=== PATIENT | male | born 1945 | race Caucasian/White ===

== ENCOUNTER 2022-09-01 09:53 | Outpatient (CLI) | payer MEDICARE, OTHER, SELFPAY ==
[2022-09-01 10:19] LABS: Basophils # 0.1 10^3/uL (0.0-0.1); Basophils % 1.1 %; Eosinophils # 0.2 10^3/uL (0.0-0.8); Eosinophils % 3.4 %; Hematocrit 41.3 % (42.0-52.0); Hemoglobin 13.3 g/dL (11.7-16.6); Lymphocytes # 1.2 10^3/uL (0.8-4.8); Lymphocytes % 20.9 %; Mean Corpuscular HGB Conc 32.2 g/dL (30.0-36.0); Mean Corpuscular Hemoglobin 30.7 pg (28.0-34.0); Mean Corpuscular Volume 95.4 fl (80-94); Mean Platelet Volume 8.9 fL (7.4-10.4); Monocytes # 0.4 10^3/uL (0.2-0.9); Monocytes % 7.4 %; Neutrophils # 3.73 10^3/uL (1.8-7.7); Nucleated Red Blood Cells % 0 %; Platelet Count 281 10^3/cmm (130-400); Red Blood Count 4.33 10^6/uL (4.1-5.3); Red Cell Distribution Width 13.5 % (12.1-15.1); White Blood Count 5.6 10^3/uL (4.0-10.0)
[2022-09-01 11:07] LABS: 25 Hydroxy Vitamin D 17 ng/mL (30-100); Alanine Aminotransferase 32 U/L (0-41); Albumin Level 3.3 g/dL (3.5-5.2); Alkaline Phosphatase 57 U/L (40-130); Anion Gap 14.4 (5-19); Aspartate Amino Transferase 21 U/L (0-40); Blood Urea Nitrogen 12 mg/dL (8-23); Calcium 8.6 mg/dL (8.5-10.5); Carbon Dioxide 28 mmol/L (22-29); Chloride 99 mmol/L (98-107); Chol HDL Ratio 2.97 mg/dL (1.0-5.00); Cholesterol 101 mg/dL (0-200); Free T4 Free Thyroxine 1.88 ng/dL (0.82-1.77); Globulin 2.9 g/dL (1.3-4.6); Glucose 137 mg/dL (65-115); HDL Cholesterol 34 mg/dL (60-100); LDL Cholesterol Calculated 47 mg/dL (50-129); LDL HDL Ratio 1.38 RATIO (0.00-3.22); Osmolality Calculated 286 mOsm/kg (285-295); Potassium 4.4 mmol/L (3.5-5.1); Sodium 137 mmol/L (136-145); Thyroid Stimulating Hormone 4.27 uIU/mL (0.27-4.20); Total Bilirubin 0.4 mg/dL (0.15-1.2); Total Protein 6.2 g/dL (6.6-8.7); Triglycerides 101 mg/dL (0-150); Vitamin B12 348 pg/mL (232-1245)
== END 2022-09-01 09:54 | disposition home or self-care (01) ==
LOC: LAB 09:56
PROVIDERS: Visit Provider Family Medicine
DX: E03.9 Hypothyroidism, unspecified (principal); I10 Essential (primary) hypertension; E78.5 Hyperlipidemia, unspecified; D51.9 Vitamin B12 deficiency anemia, unspecified; E56.9 Vitamin deficiency, unspecified
CPT/HCPCS: 80053; 80061; 82306; 82607; 83735; 84439; 84443; 85025

== ENCOUNTER 2022-09-19 14:50 | Outpatient (CLI) | payer MEDICARE, SELFPAY ==
[2022-09-19 16:57] LABS: Glucose Urine UA Norm (Normal); Ketones Urine Negative (Negative); Protein Urine Trace (Negative); Urine Appearance Hazy (CLEAR); Urine Color Yellow (Yellow); pH Urine 5 (5-7)
[2022-09-19 16:58] LABS: Add Urine Microscopic? YES; Bilirubin Urine Neg (Negative); Blood Urine 3+ (Negative); Leukocyte Esterase Urine 2+ (Negative); Nitrate Urine Negative (Negative); Urobilinogen Urine Norm (Negative)
[2022-09-19 16:59] LABS: Add Urine Culture? Yes; Bacteria Urine 2+ /hpf; RBC Urine 40-50 /hpf (0-2); Squamous Epithelial Cell Urine 0-4 /hpf (0-5); WBC Urine 15-25 /hpf (0-5)
== END 2022-09-19 14:51 | disposition home or self-care (01) ==
PROVIDERS: Visit Provider Family Medicine
DX: Z01.89 Encounter for other specified special examinations (principal)
CPT/HCPCS: 81001; 87086

== ENCOUNTER 2022-09-30 14:11 | Outpatient (CLI) | payer MEDICARE, SELFPAY ==
[2022-09-30 14:47] LABS: Urine Color Yellow (Yellow)
[2022-09-30 14:48] LABS: Add Urine Microscopic? YES; Bilirubin Urine Neg (Negative); Blood Urine 3+ (Negative); Glucose Urine UA Norm (Normal); Ketones Urine Negative (Negative); Leukocyte Esterase Urine 2+ (Negative); Nitrate Urine Negative (Negative); Protein Urine 1+ (Negative); RBC Urine 50-80 /hpf (0-2); Specific Gravity, Urine 1.025 (1.005-1.030); Urine Appearance Cloudy (CLEAR); Urobilinogen Urine Norm (Negative); pH Urine 5 (5-7)
[2022-09-30 14:49] LABS: WBC Urine 25-40 /hpf (0-5)
[2022-09-30 14:50] LABS: Add Urine Culture? No; Bacteria Urine TRACE /hpf; Mucus Urine 1+ /hpf; Squamous Epithelial Cell Urine 0-4 /hpf (0-5)
== END 2022-09-30 14:12 | disposition home or self-care (01) ==
PROVIDERS: PCP Family Medicine; Visit Provider Family Medicine
DX: N20.0 Calculus of kidney (principal)
CPT/HCPCS: 81001; 87086

== ENCOUNTER 2022-10-16 22:20 | Emergency (ER) | payer MEDICARE, OTHER, SELFPAY ==
[2022-10-16 22:25] VITALS: BP 163/90; PULSE 104; RESP 16; TEMP 37.9; O2SAT 96; BMI 32.5
--- NOTE | 2022-10-16 22:29 | ECG_ITS ---
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 Measurements Intervals [place] Rate: 100 P: 24 TX: 148 QRS: 57 QRSD: 88 T: 52 QT: 329 QTc: 426 Interpretive Statements SINUS TACHYCARDIA POSSIBLE RIGHT VENTRICULAR CONDUCTION DELAY [RSR (QR) IN V1/V2] ABNORMAL RHYTHM ECG No previous ECG available for comparison Electronically Signed On 10-17-2022 16:02:54 CDT by Papa Little M.D. [id number]
--- NOTE | 2022-10-16 22:51 | CTR_ITS ---
PROCEDURE INFORMATION: Exam: CT Head Without Contrast Exam date and time: 10/16/2022 11:39 PM Age: 77 years old Clinical indication: Syncope and collapse; Patient HX: EMS arrival from assisted living for syncopal episode with lethargy TECHNIQUE: Imaging protocol: Computed tomography of the head without contrast. Radiation optimization: All CT scans at this facility use at least one of these dose optimization techniques: automated exposure control; mA and/or kV adjustment per patient size (includes targeted exams where dose is matched to clinical indication); or iterative reconstruction. REPORTING DATA: Count of CT and Cardiac NM exams in prior 12 months: This patient has received 0 known CTs and 0 known cardiac nuclear medicine studies in the 12 months prior to the current study. COMPARISON: No relevant prior studies available. RADIATION DOSE METRICS: Total DLP (mGy-cm): 1196.58 FINDINGS: Brain: No focal hemorrhage or midline shift is identified. The ventricles and parenchyma show nerc-fo-qngmtdvq atrophy and chronic bicerebral white matter ischemic change. Cerebral ventricles: No ventriculomegaly or evidence of hydrocephalus. Paranasal sinuses: There is yxzggokw-ux-lnkysm bilateral ethmoid and right maxillary sinus disease, partially imaged. Mastoid air cells: Visualized mastoid air cells are well aerated. Bones/joints: No displaced skull fracture is noted. Soft tissues: Unremarkable. Vasculature: Diffuse vascular calcifications are present. CT/CT head wo con* [id number] IMPRESSION: 1. No acute intracranial abnormality. 2. Mild to moderate age-related changes. 3. There is rtdvkmwm-ke-xetxsy bilateral ethmoid and right maxillary sinus disease, partially imaged.
--- NOTE | 2022-10-16 22:51 | XRR_ITS ---
PROCEDURE INFORMATION: Exam: XR Chest Exam date and time: 10/16/2022 11:30 PM Age: 77 years old Clinical indication: Other: Syncope; Patient HX: EMS arrival from assisted living for syncopal episode with lethargy TECHNIQUE: Imaging protocol: Radiologic exam of the chest. Views: 1 view. COMPARISON: No relevant prior studies available. FINDINGS: Lungs: Unremarkable. No consolidation. Pleural spaces: Unremarkable. No pleural effusion. No pneumothorax. Heart/Mediastinum: Unremarkable. No cardiomegaly. Bones/joints: Unremarkable. XR/XR chest 1V portable [id number] IMPRESSION: No acute findings.
[2022-10-16 22:59] LABS: Basophils % 0.4 %; Eosinophils # 0.1 10^3/uL (0.0-0.8); Eosinophils % 1.1 %; Hematocrit 44.1 % (37-53); Lymphocytes # 0.7 10^3/uL (0.8-4.8); Lymphocytes % 7.2 %; Mean Corpuscular HGB Conc 32.2 g/dL (30-55); Mean Corpuscular Volume 96.3 fl (82-101); Mean Platelet Volume 9.5 fL (7.4-10.4); Monocytes # 0.8 10^3/uL (0.2-0.9); Monocytes % 8.4 %; Neutrophils # 8.02 10^3/uL (1.8-7.7); Neutrophils % 82.6 %; Nucleated Red Blood Cells % 0 %; Platelet Count 169 10^3/cmm (157-399); Red Blood Count 4.58 10^6/uL (3.85-5.65); White Blood Count 9.72 10^3/uL (3.29-11.43)
--- NOTE | 2022-10-16 23:02 | W.ED.SYNCOPE ---
HPI - Syncope General: Chief Complaint: Syncope Stated Complaint: Syncope Time Seen by Provider: 10/16/22 22:29 Source: patient History of Present Illness: 77-year-old male presenting after near syncopal episode while on the toilet. He resides in assisted living. He states the nurses kept me on the ground until the ambulance came . He denies any chest pain. He states that they told him he had a fever. He was not injured in the event. He is not short of breath. He has a colostomy. MD complaint: almost passed out and collapsed Onset (ago): minute(s) Associated symptoms: Reports fever(s); Deny abdominal pain, chest pain or nausea Review of Systems Const: Reports: fever(s) and chills ENMT: Denies: throat pain Card: Denies: chest pain or palpitations Resp: Denies: dyspnea, productive cough or non-productive cough GI: Denies: abdominal pain, nausea or vomiting Physical Exam Const: COMMON NORMALS: no acute distress GENERAL APPEARANCE: cooperative; not ill appearing and not frail appearing HENMT: COMMON NORMALS: normocephalic, atraumatic and Normal external nose present HEAD & SCALP: normocephalic and atraumatic FACE & SINUS: normal facial exam and face symmetric NOSE: Normal external nose present Eye: COMMON NORMALS: Equal, round and reactive pupils present and EOMs intact bilaterally PUPIL: Yes Equal, round and reactive pupils present Neck/C-Spine: GENERAL: Yes trachea midline Chest: CHEST: Yes Symmetrical chest wall rise Resp: COMMON NORMALS: normal respiratory effort, No retractions, No use of accessory muscles and clear to auscultation bilaterally AUSCULTATION: clear to auscultation bilaterally Cardio: COMMON NORMALS: regular rhythm RATE: tachycardic RHYTHM: regular rhythm GI: COMMON NORMALS: Normal to inspection, nondistended, normoactive bowel sounds present OTHER: Colostomy bag present Extremity: COMMON NORMALS: no pedal edema Neuro: ANITA COMA SCALE: document GCS findings [place]coe coma scale eye opening: Spontaneous [place] coma scale verbal response: Orientated [place] coma scale motor response: Obey commands [place] coma scale total score: 15 SENSORY EXAM: Yes extremities (intact) Psych: COMMON NORMALS: speech normal SPEECH: Yes normal speech Skin: COMMON NORMALS: no rashes or lesions noted GENERAL SKIN EXAM: no rashes or lesions noted Course Vital Signs: Vital signs: Vital Signs Temperature 100.2 F H 10/16/22 22:25 Pulse Rate 96 10/17/22 01:55 Respiratory Rate 16 10/17/22 01:55 Blood Pressure 123/72 10/17/22 01:55 Pulse Oximetry 97 10/17/22 01:55 MDM - Syncope Medical Decision Making Likely vasovagal syncopal event on the stool, EKG shows sinus rate at 100 normal axis. Normal intervals. Minimal ST depression laterally. Vitals are remained stable. CBC is normal. BMP is normal. Chest x-ray is negative. CT of the head shows age-related changes, otherwise normal. COVID is negative. Leukocyte Estrace is positive with 5-10 white blood cells. He will be treated for urinary tract infection, as he relates to me now that he recently had a stent removed from placement after lithotripsy. He will be allowed discharge. Return for worsening symptoms. Lab Data 10/16/22 22:03 10/16/22 23:17 Radiology Impressions Chest X-Ray 10/16/22 22:51 IMPRESSION: No acute findings. Head CT 10/16/22 22:51 IMPRESSION: 1. No acute intracranial abnormality. 2. Mild to moderate age-related changes. 3. There is kquzcrtw-ge-etbdfp bilateral ethmoid and right maxillary sinus disease, partially imaged. Laboratory Results WBC 9.72 10^3/uL (3.29-11.43) 10/16/22 22:03 RBC 4.58 10^6/uL (3.85-5.65) 10/16/22 22:03 Hgb 14.20 g/dL (11.27-16.99) 10/16/22 22:03 Hct 44.1 % (37-53) 10/16/22 22:03 MCV 96.3 fl (82-101) 10/16/22 22:03 MCH 31.0 pg (27-33) 10/16/22 22: MCHC 32.2 g/dL (30-55) 10/16/22 22:03 RDW 18.0 % (12.1-15.1) H 10/16/22 22:03 Plt Count 169 10^3/cmm (157-399) 10/16/22 22:03 MPV 9.5 fL (7.4-10.4) 10/16/22 22:03 Neut % (Auto) 82.6 % 10/16/22 22:03 Lymph % (Auto) 7.2 % 10/16/22 22:03 [place] % (Auto) 8.4 % 10/16/22 22:03 Eos % (Auto) 1.1 % 10/16/22 22:03 Baso % (Auto) 0.4 % 10/16/22 22:03 Neut # (Auto) 8.02 10^3/uL (1.8-7.7) H 10/16/22 22:03 Lymph # (Auto) 0.7 10^3/uL (0.8-4.8) L 10/16/22 22:03 [place] # (Auto) 0.8 10^3/uL (0.2-0.9) 10/16/22 22:03 Eos # (Auto) 0.1 10^3/uL (0.0-0.8) 10/16/22 22:03 Baso # (Auto) 0.0 10^3/uL (0.0-0.1) 10/16/22 22:03 Nucleated RBC % (auto) 0 % 10/16/22 22:03 Nucleated RBCs # 0.0 /100WBC 10/16/22 22:03 Sodium 140 mmol/L (136-145) 10/16/22 23:17 Potassium 4.4 mmol/L (3.5-5.1) 10/16/22 23:17 Chloride 105 mmol/L (98-107) 10/16/22 23:17 Carbon Dioxide 26 mmol/L (22-29) 10/16/22 23:17 Anion Gap 13.4 (5-19) 10/16/22 23:17 BUN 14 mg/dL (8-23) 10/16/22 23:17 Creatinine 1.2 mg/dL (0.7-1.2) 10/16/22 23:17 GFR Calculation Not Reportable 10/16/22 23:17 Glucose 124 mg/dL (65-115) H 10/16/22 23:17 Calculated Osmolality 292 mOsm/kg (285-295) 10/16/22 23:17 Calcium 9.2 mg/dL (8.5-10.5) 10/16/22 23:17 Magnesium 1.9 mg/dL (1.7-2.3) 10/16/22 23:17 Total Bilirubin 0.9 mg/dL (0.15-1.2) 10/16/22 23:17 AST 15 U/L (0-40) 10/16/22 23:17 ALT 21 U/L (0-41) 10/16/22 23:17 Alkaline Phosphatase 53 U/L (40-130) 10/16/22 23:17 Troponin T Baseline 32 ng/L (0-15) H 10/16/22 23:17 Troponin T 120 Minute 33.77 ng/L (0-15) H 10/17/22 01:11 Delta Troponin T 1.77 ABS# (0-10) 10/17/22 01:11 Total Protein 6.5 g/dL (6.6-8.7) L 10/16/22 23:17 Albumin 4.0 g/dL (3.5-5.2) 10/16/22 23:17 Globulin 2.5 g/dL (1.3-4.6) 10/16/22 23:17 Urine Color Yellow (Yellow) 10/17/22 00:20 Urine Appearance Clear (CLEAR) 10/17/22 00:20 Urine pH 5 (5-7) 10/17/22 00:20 Ur Specific [place] 1.025 (1.005-1.030) 10/17/22 00:20 Urine Protein Trace (Negative) 10/17/22 00:20 Urine Glucose (UA) Norm (Normal) 10/17/22 00:20 Urine Ketones Negative (Negative) 10/17/22 00:20 Urine Blood Trace (Negative) H 10/17/22 00:20 Urine Nitrate Negative (Negative) 10/17/22 00:20 Urine Bilirubin Neg (Negative) 10/17/22 00:20 Urine Urobilinogen Neg mg/dL (Negative) 10/17/22 00:20 Ur Leukocyte Esterase 1+ (Negative) H 10/17/22 00:20 Urine RBC 0-4 /hpf (0-2) H 10/17/22 00:20 Urine WBC 5-10 /hpf (0-5) H 10/17/22 00:20 Ur Squamous Epith Cells 0-4 /hpf (0-5) H 10/17/22 00:20 Amorphous Sediment 2+ /hpf 09/11/23 00:20 Urine Bacteria 1+ /hpf (NONE) H 10/17/22 00:20 Urine Mucus 2+ /hpf 10/17/22 00:20 SARS-CoV-2 Ag (Rapid) negative (Negative) 10/16/22 23:52 Discharge Plan Discharge Patient Disposition: Home Clinical Impression: Near syncope, Urinary tract infection Condition: Stable Prescriptions: New cefdinir 300 mg capsule 300 mg PO BID Qty: 14 0RF Discharge Orders: Discharge ED (Routine); Ordered 10/17/22 Ordered By: Pepe Campbell Referrals: Arvind Hernandez DO [Primary Care Provider] - Patient Instructions: Urinary Tract Infection in Men (ED), Near Syncope (ED) Activity Restrictions/Additional Instructions: Return for continued fever despite 2-3 more doses of antibiotics, repeated episodes of syncope or passing out, development of chest discomfort, mental status changes, any other concerning symptoms. Coding Level of Care Code ED Ironworker Wire Fence Erector for Jose Lord
[2022-10-16] MEDS: sodium chloride 0.9% 1,000 ML 999 ML IV (23:14)
[2022-10-16] MEDS: acetaminophen 325 mg Tablet 650 MG PO (23:14)
[2022-10-16 23:52] LABS: Troponin(5th) Baseline 32 ng/L (0-15)
[2022-10-16 23:53] LABS: Alanine Aminotransferase 21 U/L (0-41); Alkaline Phosphatase 53 U/L (40-130); Anion Gap 13.4 (5-19); Aspartate Amino Transferase 15 U/L (0-40); Blood Urea Nitrogen 14 mg/dL (8-23); Calcium 9.2 mg/dL (8.5-10.5); Carbon Dioxide 26 mmol/L (22-29); Chloride 105 mmol/L (98-107); Globulin 2.5 g/dL (1.3-4.6); Glucose 124 mg/dL (65-115); Magnesium 1.9 mg/dL (1.7-2.3); Osmolality Calculated 292 mOsm/kg (285-295); Potassium 4.4 mmol/L (3.5-5.1); Sodium 140 mmol/L (136-145); Total Bilirubin 0.9 mg/dL (0.15-1.2); Total Protein 6.5 g/dL (6.6-8.7)
[2022-10-17 00:16] LABS: SARS Covid-2 Antigen negative (Negative)
[2022-10-17 00:22] VITALS: BP 123/82; PULSE 96; RESP 16; O2SAT 95
--- NOTE | 2022-10-17 01:02 | ECG_ITS ---
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 Measurements Intervals [place] Rate: 96 P: 62 MN: 147 QRS: 64 QRSD: 90 T: 58 QT: 352 QTc: 446 Interpretive Statements SINUS RHYTHM WITH SINUS ARRHYTHMIA POSSIBLE RIGHT VENTRICULAR CONDUCTION DELAY [RSR (QR) IN V1/V2] MINIMAL ST DEPRESSION [0.025+ mV ST DEPRESSION] Compared to ECG 10/16/2022 22:29:49 ST (T wave) deviation now present Sinus tachycardia no longer present Electronically Signed On 10-17-2022 16:04:10 CDT by Papa Little M.D. [id number]
[2022-10-17 01:14] LABS: Add Urine Microscopic? YES; Bilirubin Urine Neg (Negative); Blood Urine Trace (Negative); Glucose Urine UA Norm (Normal); Ketones Urine Negative (Negative); Leukocyte Esterase Urine 1+ (Negative); Nitrate Urine Negative (Negative); Protein Urine Trace (Negative); RBC Urine 0-4 /hpf (0-2); Specific Gravity, Urine 1.025 (1.005-1.030); Squamous Epithelial Cell Urine 0-4 /hpf (0-5); Urine Appearance Clear (CLEAR); Urine Color Yellow (Yellow); Urobilinogen Urine Neg (Negative); pH Urine 5 (5-7)
[2022-10-17 01:15] LABS: Add Urine Culture? No; Amorphous Sediment Urine 2+ /hpf; Bacteria Urine 1+ /hpf; Mucus Urine 2+ /hpf
[2022-10-17 01:35] LABS: Troponin 5 2HR 33.77 ng/L (0-15)
[2022-10-17 01:36] LABS: Troponin 5 2HR Delta 1.77 ABS# (0-10)
[2022-10-17] MEDS: cefTRIAXone 1,000 MG in sodium chloride 0.9% (plus) 50 ML 100 MG IV (01:54)
[2022-10-17 01:55] VITALS: BP 123/72; PULSE 96; RESP 16; O2SAT 97
[2022-10-17 04:35] VITALS: BP 154/91; PULSE 87; RESP 16; O2SAT 94
[2022-10-17 06:23] VITALS: BP 124/90; PULSE 96; RESP 16; O2SAT 97
[2022-10-17 06:24] VITALS: BP 124/90; PULSE 96; RESP 16; TEMP 37.9; O2SAT 97
== END 2022-10-17 09:07 | disposition home or self-care (01) ==
PROVIDERS: Emergency Provider Emergency Medicine; PCP Family Medicine
DX: R55 Syncope and collapse (principal); N39.0 Urinary tract infection, site not specified; Z20.822 Contact with and (suspected) exposure to COVID-19; W18.11XA Fall from or off toilet without subsequent striking against object, initial encounter; Y92.129 Unspecified place in nursing home as the place of occurrence of the external cause
CPT/HCPCS: 36415; 70450; 71045; 80053; 81001; 83605; 83735; 84484; 85025; 87426; 93005; 99283; 99285; J0696; J7030

== ENCOUNTER 2022-10-17 19:44 | Emergency (ER) | payer MEDICARE, OTHER, SELFPAY ==
[2022-10-17 19:48] VITALS: BP 181/82; PULSE 103; RESP 18; TEMP 37.7; O2SAT 94; BMI 32.5
--- NOTE | 2022-10-17 21:43 | ED_ITS ---
HPI - Fall General: Chief Complaint: Fall Stated Complaint: falls Time Seen by Provider: 10/17/22 21:40 History of Present Illness: 77-year-old male patient comes in today for complaints of weakness. Patient lives at [facility] and was seen yesterday and diagnosed with a urinary tract infection. Patient was placed on cefdinir. Patient reports having a bowel movement and went to get up off the toilet and lost his balance falling forward. Patient denies hitting his head or falling completely to the ground but had to have assistance getting to a standing position from the toilet. intermediate staff reported some confusion by the patient at the time of the incident and contacted EMS for him to be evaluated further. On exam patient appears nontoxic. Patient is alert and oriented responding appropriately to questions. Patient feels that he just has this infection that is kind of making him weaker than normal. Review of Systems General: Reports: 10 or more systems reviewed and unremarkable except in HPI and below Const: Reports: malaise Neuro: Reports: weakness in extremities Physical Exam Const: COMMON NORMALS: alert HENMT: COMMON NORMALS: atraumatic HEAD & SCALP: atraumatic MOUTH: Normal oral and palatal mucosa present Neck/C-Spine: COMMON NORMALS: full ROM Chest: COMMONS NORMALS: normal inspection of the chest and normal palpation of entire chest wall Resp: COMMON NORMALS: normal respiratory effort and clear to auscultation bilaterally AUSCULTATION: clear to auscultation bilaterally Cardio: COMMON NORMALS: regular rate and regular rhythm RATE: regular rate RHYTHM: regular rhythm GI: COMMON NORMALS: Soft to palpation and non-tender PALPATION: Yes Soft to palpation : COMMON NORMALS: Yes no CVA tenderness BLADDER/KIDNEY EXAM: Yes no CVA tenderness Back/Pelvis: COMMON NORMALS: no CVA tenderness Extremity: COMMON NORMALS: no pedal edema Neuro: SENSORIUM/ORIENTATION: Yes alert Skin: COMMON NORMALS: turgor normal GENERAL SKIN EXAM: turgor normal Course Vital Signs: Vital signs: Vital Signs Temperature 99.9 F H 10/17/22 19:48 Pulse Rate 103 H 10/17/22 19:48 Respiratory Rate 18 10/17/22 19:48 Blood Pressure 181/82 10/17/22 19:48 Pulse Oximetry 94 10/17/22 19:48 Oxygen Delivery Me thod Room Air 10/17/22 19:48 MDM - Fall Medical Decision Making 77-year-old male patient was sent over for evaluation after a fall. Patient reports that he actually just came down on his knees but did not fall completely. Patient was trying to get up off the toilet when he felt weak and could not stand without assistance. On exam patient has no injury to the head or scalp. No pain is noted on the neck or back. Abdomen soft nontender. Vital signs are normal. Differential diagnosis includes UTI, sepsis, fall without injury, gastroenteritis, viral syndrome. CBC, CMP and lactic were all unremarkable. Patient had no obvious injury from fall. Patient no focal neural deficits. Patient was stable and discharged back to the [facility] with recommendations for follow-up. Patient reported understanding and agreed to plan. Lab Data 10/17/22 21:55 10/17/22 21:55 Laboratory Results WBC 10.53 10^3/uL (3.29-11.43) 10/17/22 21:55 RBC 5.02 10^6/uL (3.85-5.65) 10/17/22 21:55 Hgb 15.40 g/dL (11.27-16.99) 10/17/22 21:55 Hct 47.2 % (37-53) 10/17/22 21:55 MCV 94.0 fl (82-101) 10/17/22 21:55 MCH 30.7 pg (27-33) 10/17/22 21:55 MCHC 32.6 g/dL (30-55) 10/17/22 21:55 RDW 14.2 % (12.1-15.1) 10/17/22 21:55 Plt Count 172 10^3/cmm (157-399) 10/17/22 21:55 MPV 8.6 fL (7.4-10.4) 10/17/22 21:55 Neut % (Auto) 82.8 % 10/17/22 21:55 Lymph % (Auto) 5.7 % 10/17/22 21:55 [place] % (Auto) 10.7 % 10/17/22 21:55 Eos % (Auto) 0.0 % 10/17/22 21: Baso % (Auto) 0.5 % 10/17/22 21:55 Neut # (Auto) 8.72 10^3/uL (1.8-7.7) H 10/17/22 21:55 Lymph # (Auto) 0.6 10^3/uL (0.8-4.8) L 10/17/22 21:55 [place] # (Auto) 1.1 10^3/uL (0.2-0.9) H 10/17/22 21:55 Eos # (Auto) 0.0 10^3/uL (0.0-0.8) 10/17/22 21:55 Baso # (Auto) 0.1 10^3/uL (0.0-0.1) 10/17/22 21:55 Nucleated RBC % (auto) 0 % 10/17/22 21:55 Nucleated RBCs # 0.0 /100WBC 10/17/22 21:55 Sodium 137 mmol/L (136-145) 10/17/22 21:55 Potassium 4.1 mmol/L (3.5-5.1) 10/17/22 21:55 Chloride 102 mmol/L (98-107) 10/17/22 21:55 Carbon Dioxide 26 mmol/L (22-29) 10/17/22 21:55 Anion Gap 13.1 (5-19) 10/17/22 21:55 BUN 12 mg/dL (8-23) 10/17/22 21:55 Creatinine 1.1 mg/dL (0.7-1.2) 10/17/22 21:55 GFR Calculation Not Reportable 10/17/22 21:55 Glucose 129 mg/dL (65-115) H 10/17/22 21:55 Calculated Osmolality 285 mOsm/kg (285-295) 10/17/22 21:55 Lactic Acid 1.2 mmol/L (0.5-2.2) 10/17/22 21:55 Calcium 9.3 mg/dL (8.5-10.5) 10/17/22 21:55 Total Bilirubin 1.0 mg/dL (0.15-1.2) 10/17/22 21:55 AST 21 U/L (0-40) 10/17/22 21:55 ALT 23 U/L (0-41) 10/17/22 21:55 Alkaline Phosphatase 53 U/L (40-130) 10/17/22 21:55 Total Protein 7.5 g/dL (6.6-8.7) 10/17/22 21:55 Albumin 4.1 g/dL (3.5-5.2) 10/17/22 21:55 Globulin 3.4 g/dL (1.3-4.6) 10/17/22 21:55 Discharge Plan Discharge Patient Disposition: Home Clinical Impression: Acute UTI Fall with no injury Qualifiers: Encounter type: initial encounter Qualified Code(s): W19.XXXA - Unspecified fall, initial encounter Condition: Stable Prescriptions: No Action cefdinir 300 mg capsule 300 mg PO BID Qty: 14 0RF Discharge Orders: Discharge ED (Routine); Ordered 10/17/22 Ordered By: Moustapha Garcia Referrals: Arvind Hernandez DO [Primary Care Provider] - Discharge Diet: Usual diet Discharge Activity: Increase activity as tolerated Patient Instructions: Urinary Tract Infection in Men (ED) Activity Restrictions/Additional Instructions: Drink plenty of water and fluids. Continue with medications as directed. Use a walker or cane to assist with walking and ambulation. Follow-up with primary ca re for further instructions. Return to ED for new concerns. Coding Level of Care Code ED Credit Analysis Manager for Jose Lord
[2022-10-17 22:01] LABS: Basophils # 0.1 10^3/uL (0.0-0.1); Basophils % 0.5 %; Hematocrit 47.2 % (37-53); Lymphocytes # 0.6 10^3/uL (0.8-4.8); Lymphocytes % 5.7 %; Mean Corpuscular HGB Conc 32.6 g/dL (30-55); Mean Corpuscular Hemoglobin 30.7 pg (27-33); Mean Platelet Volume 8.6 fL (7.4-10.4); Monocytes # 1.1 10^3/uL (0.2-0.9); Monocytes % 10.7 %; Neutrophils # 8.72 10^3/uL (1.8-7.7); Neutrophils % 82.8 %; Nucleated Red Blood Cells % 0 %; Platelet Count 172 10^3/cmm (157-399); Red Blood Count 5.02 10^6/uL (3.85-5.65); Red Cell Distribution Width 14.2 % (12.1-15.1); White Blood Count 10.53 10^3/uL (3.29-11.43)
[2022-10-17 22:21] LABS: Alanine Aminotransferase 23 U/L (0-41); Albumin Level 4.1 g/dL (3.5-5.2); Alkaline Phosphatase 53 U/L (40-130); Anion Gap 13.1 (5-19); Aspartate Amino Transferase 21 U/L (0-40); Blood Urea Nitrogen 12 mg/dL (8-23); Calcium 9.3 mg/dL (8.5-10.5); Carbon Dioxide 26 mmol/L (22-29); Chloride 102 mmol/L (98-107); Globulin 3.4 g/dL (1.3-4.6); Glucose 129 mg/dL (65-115); Lactic Sepsis W/Reflex 1.2 mmol/L (0.5-2.2); Osmolality Calculated 285 mOsm/kg (285-295); Potassium 4.1 mmol/L (3.5-5.1); Sodium 137 mmol/L (136-145); Total Protein 7.5 g/dL (6.6-8.7)
== END 2022-10-17 22:40 | disposition home or self-care (01) ==
PROVIDERS: Emergency Provider Nurse Practitioner Family; PCP Family Medicine
DX: N39.0 Urinary tract infection, site not specified (principal); W18.11XA Fall from or off toilet without subsequent striking against object, initial encounter; Y92.129 Unspecified place in nursing home as the place of occurrence of the external cause
CPT/HCPCS: 36415; 80053; 83605; 85025; 99283

== ENCOUNTER → 2023-01-11 10:40 | Outpatient (BNVA) | payer MEDICARE, OTHER, SELFPAY | PROVIDERS: PCP Family Medicine; Visit Provider Family Medicine | DX: N40.1 Benign prostatic hyperplasia with lower urinary tract symptoms (principal); N13.8 Other obstructive and reflux uropathy; E03.9 Hypothyroidism, unspecified; E78.2 Mixed hyperlipidemia; I10 Essential (primary) hypertension; M10.9 Gout, unspecified | CPT/HCPCS: 80053; 80061; 84439; 84443; 84550; 85025; G0103 ==

== ENCOUNTER 2023-06-02 10:16 | Outpatient (CLI) | payer MEDICARE, OTHER, SELFPAY ==
--- NOTE | 2023-06-02 10:28 | XRR_ITS ---
PROCEDURE INFORMATION: Exam: XR Lumbosacral Spine Exam date and time: 06/02/2023 10:33 AM Age: 77 years old Clinical indication: Low back pain; Prior surgery; Surgery date: 6+ months; Surgery type: Discectomy, colostomy; Patient HX: Chronic back pain for several years, lower extremity numbness upon standing for last 1.5 weeks; Additional info: Low back pain, bilateral le numbness TECHNIQUE: Imaging protocol: Radiologic exam of the lumbosacral spine. Views: 2 or 3 views. COMPARISON: No relevant prior studies available. FINDINGS: Bones/joints: Moderate scoliosis convex to the right. 10 mm left lateral subluxation of L2 on L3. 4 mm left lateral subluxation of L3 on L4. 5 mm right lateral subluxation of L4 on L5. Moderate kyphosis upper lumbar spine. 3 mm retrolisthesis of L3 on L4. 5 mm retrolisthesis of L4 on L5. 2 mm retrolisthesis of L5 on S1. Severe degenerative disc disease from the L2 level to the L5 level. Moderate L1-L2 and L5-S1 degenerative disc disease. 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 Otherwise, unremarkable. Soft tissues: Unremarkable. Vasculature: Large amount of arterial calcification. XR/XR lumbar spine 2-3V* [id number] IMPRESSION: 1. No acute findings. 2. Additional details as above.
== END 2023-06-02 10:17 | disposition home or self-care (01) ==
LOC: RAD 10:22
PROVIDERS: PCP Family Medicine; Visit Provider Family Medicine
DX: M41.86 Other forms of scoliosis, lumbar region (principal); R20.2 Paresthesia of skin; M43.17 Spondylolisthesis, lumbosacral region; Z98.890 Other specified postprocedural states; M47.897 Other spondylosis, lumbosacral region
CPT/HCPCS: 72100